=== PATIENT | male | born 1990 | race Caucasian/White ===

== ENCOUNTER 2017-06-18 21:57 | Emergency (ER) | payer MEDICAID ==
--- NOTE | 2017-06-19 00:28 | ED Physician Chart ---
ED Chief Complaint/HPI - Patient Information Date Seen:: 06/19/17 Time Seen:: 00:25 Chief Complaint:: Headache History of Present Illness:: 26 yo male had headache, neck pain, LUE pain and numbness for 1 day. He also had epigastric pain and vomited a few hours prior. Allergies:: Allergies Allergy/AdvReac Type Severity Reaction Status Date / Time Penicillins Allergy Verified 06/18/17 22:52 Vitals:: Vital Signs - 8 hr 06/18/17 22:30 Temp 99.3 F HR 108 RR 18 BP 118/68 ED Review of Systems - Review of Systems General/Constitutional: No fever Skin: No skin lesions Head: Headache Eyes: No pain ENT: No earache Neck: Neck pain Cardio Vascular: No chest pain Pulmonary: No SOB GI: Nausea, Vomiting, Pain Musculoskeletal: Muscle pain ED Past Medical History - Past Medical History Past Medical History: Asthma/COPD, Other (low back pain) Social History: Non Smoker, No Alcohol, No Drug Use Surgical History: None Family Medical History - Family Member Mother History Unknown: Yes ED Physical Exam - Physical Examination General/Constitutional: Awake Head: Atraumatic Eyes: PERRL Skin: No skin lesions ENMT: Nasal exam nl Other Neck comments:: Left neck tenderness with painful ROM Respiratory: Clear to Auscultation Cardio Vascular: RRR, No murmur, gallop, rubs, NL S1 S2 Other GI comments:: Epigastric tenderness, mild Other Extremities comments:: LUE motor strength 5/5, RUE motor strength 5/5 ED Assessment - Assessment General Assessment: Cervicalgia Gastritis Assessment/Comments:: Pantoprazole Ibuprofen D/c home F/u PCP or return to ER if symptoms worsen ED Septic Shock - . Is Septic Shock (SBP<90, OR Lactate>4 mmol\L) present?: No - <6hrs of presentation: Vital Signs: Vital Signs - 8 hr 06/18/17 22:30 Temp 99.3 F HR 108 RR 18 BP 118/68 ED Reassessment (Disposition) - Reassessment Reassessment:: neck pain and epigastric subsided after the medications Reassessment Condition:: Improved - Patient Disposition Discharge/Transfer:: Home ED Discharge Plan - Patient Disposition Admit/Discharge/Transfer: PT DISCHARGED HOME Instructions: Gastritis, Adult, Viral Infections, [id number] Additional Instructions: FOLLOW UP WITH YOUR DOCTOR IN 2-3 DAYS AND TO COME BACK TO ER IF SYMPTOMS WORSEN
[2017-06-19] MEDS ORDERED: Pantoprazole 40 mg EC Tab PO STA (00:32)
[2017-06-19] MEDS ORDERED: Pantoprazole 40 mg EC Tab PO ONE (00:36)
== END 2017-06-19 01:30 | disposition home or self-care (01) ==
LOC: ER 21:57
DX: M54.2 Cervicalgia (principal); K29.70 Gastritis, unspecified, without bleeding
CPT/HCPCS: Z7502; Z7610

== ENCOUNTER 2018-02-06 17:51 | Emergency (ER) | payer SELFPAY ==
--- NOTE | 2018-02-06 18:59 | ED Physician Chart ---
ED Chief Complaint/HPI - Patient Information Date Seen:: 02/06/18 Time Seen:: 18:20 Chief Complaint:: rt hip skin lesion History of Present Illness:: 27 yr old male who noticed a worsening of rt hip skin nodule no fwever no drainage or fluctuance just annoying pain when he walks Allergies:: Allergies Allergy/AdvReac Type Severity Reaction Status Date / Time Penicillins Allergy Verified 02/06/18 18:01 Vitals:: Vital Signs - 8 hr 02/06/18 18:02 Temp 98.8 F HR 60 RR 16 BP 115/62 O2 Sat % 96 ED Review of Systems - Review of Systems General/Constitutional: No fever, No chills, No weight loss, No weakness, No diaphoresis, No edema, No loss of appetite Skin: Skin lesions Head: No headache, No light-headedness Eyes: No loss of vision, No pain, No diplopia ENT: No earache, No nasal drainage, No sore throat, No tinnitus Neck: No neck pain, No swelling, No thyromegaly, No stiffness, No mass noted Cardio Vascular: No chest pain, No palpitations, No PND, No orthopnea, No edema Pulmonary: No SOB, No cough, No sputum, No wheezing GI: No nausea, No vomiting, No diarrhea, No pain, No melena, No hematochezia, No constipation, No hematemesis G/U: No dysuria, No frequency, No hematuria Musculoskeletal: No bone or joint pain, No back pain, No muscle pain Endocrine: No polyuria, No polydipsia Psychiatric: No prior psych history, No depression, No anxiety, No suicidal ideation Hematopoietic: No bruising, No lymphadenopathy Allergic/Immuno: No urticaria, No angioedema Neurological: No syncope, No focal symptoms, No weakness, No paresthesia, No headache, No seizure, No dizziness, No confusion, No vertigo ED Past Medical History - Past Medical History Past Medical History: No significant medical hx Family Medical History - Family Member Mother History Unknown: Yes ED Physical Exam - Physical Examination General/Constitutional: Awake, Well-developed, well-nourished, Alert, No distress, GCS 15, Non-toxic appearing, Ambulatory Head: Atraumatic Eyes: Lids, conjuctiva normal, PERRL, EOMI Skin: Nl inspection, No rash, No skin lesions, No ecchymosis, Well hydrated, No lymphadenopathy Other Skin comments:: small hard skin nodule size of apea ENMT: External ears, nose nl, Nasal exam nl, Lips, teeth, gums nl Neck: Nontender, Full ROM w/o pain, No JVD, No nuchal rigidity, No bruit, No mass, No stridor Respiratory: Nl effort/Exclusion, Clear to Auscultation, No Wheeze/Rhonchi/Rales Cardio Vascular: RRR, No murmur, gallop, rubs, NL S1 S2 GI: No tenderness/rebounding/guarding, No organomegaly, No hernia, Normal BS's, Nondistended, No mass/bruits, No McBurney tenderness : No CVA tenderness Extremities: No tenderness or effusion, Full ROM, normal strength in all extremities, No edema, Normal digits & nails Neuro/Psych: Alert/oriented, DTR's symmetric, Normal sensory exam, Normal motor strength, Judgement/insight normal, Mood normal, Normal gait, No focal deficits Misc: Normal back, No paraspinal tenderness ED Assessment - Assessment General Assessment: skin lesion rt hip small nodule ED Septic Shock - . Is Septic Shock (SBP<90, OR Lactate>4 mmol\L) present?: No - <6hrs of presentation: Vital Signs: Vital Signs - 8 hr 02/06/18 18:02 Temp 98.8 F HR 60 RR 16 BP 115/62 O2 Sat % 96 ED Reassessment (Disposition) - Reassessment Reassessment Condition:: Unchanged - Diagnosis Diagnosis:: small skin lesion rt hip skin r/o epidermal cyst - Aftercare/Follow up Instructions Aftercare/Follow-Up Instructions:: Counseled pt regarding lab results/diagnosis & need follow up - Patient Disposition Discharge/Transfer:: Home Condition at Disposition:: Stable
== END 2018-02-06 19:10 | disposition home or self-care (01) ==
LOC: ER 17:51
DX: L98.9 Disorder of the skin and subcutaneous tissue, unspecified (principal); R22.2 Localized swelling, mass and lump, trunk; Z88.0 Allergy status to penicillin
CPT/HCPCS: Z7502